=== PATIENT | male | born 1995 | race Caucasian/White ===

== ENCOUNTER → 2024-07-30 | Day surgery (SDC) | payer OTHER ==
[~2024-07-30] MED LIST: ACETAMINOPHEN 1000 MG/100 ML 100 ML IV ONE; ANAFRANIL50 MG PO; ASPIRIN81 MG PO; DEXAMETHASONE SOD PHOS INJ 4 MG/ML SDV ONE; DEXMEDETOMIDINE HCL 2 ML ONE; FENTANYL CITRATE/PF 100MCG/2 ML INJ ONE; LIDOCAINE HCL 2% LOCAL INJ 5 ML SDV VIAL INJ ONE; MULTI-VITAMIN1 EACH PO; ONDANSETRON HCL INJ 2MG/ML 2ML 2 MG/ML VIAL ONE; PROPOFOL IV EMULSION 10 MG/ML 20 ML VIAL ONE; ROCURONIUM BROMIDE 1 ML IV ONE; SODIUM CHLORIDE 0.9% 100 ML ONE; SUGAMMADEX SODIUM 200 MG/2 ML VIAL IV ONE
[2024-07-30] MEDS: LACTATED RINGER'S 1,000 ML ONE (07:30)
[2024-07-30] MEDS: MEPERIDINE HCL INJ 25 MG/ML VIAL ONE (09:13)
[2024-07-30 09:14] VITALS: TEMP 97
[2024-07-30 10:20] VITALS: BP 102/76; PULSE 89; RESP 16; O2SAT 96
== END | disposition home or self-care (01) ==
LOC: OR 06:41
PROVIDERS: ATTEND Specialist
DX: S46.012A Strain of muscle(s) and tendon(s) of the rotator cuff of left shoulder, initial encounter (principal); J45.909 Unspecified asthma, uncomplicated; X58.XXXA Exposure to other specified factors, initial encounter; Y93.B3 Activity, free weights; Y92.39 Other specified sports and athletic area as the place of occurrence of the external cause; Y99.8 Other external cause status; Z79.82 Long term (current) use of aspirin; Z79.899 Other long term (current) drug therapy
CPT/HCPCS: 29822; J0131; J0690; J1100; J2003; J2175; J2405; J2704; J3010; J7050; J7121